=== PATIENT | female | born 1975 | race Caucasian/White ===

== ENCOUNTER 2018-12-24 13:06 | Emergency (ER) | payer OTHER, MEDICAID ==
[~2018-12-24] VITALS: Ht 157.5 cm; Wt 120.0 kg
[~2018-12-24 13:06] MED LIST: ALPR-624 PO; HYDR-4383 PO; METH4TAB PO; VIT D
[2018-12-24 13:39] VITALS: BP 108/70
== END 2018-12-24 15:24 | disposition home or self-care (01) ==
LOC: ER 13:06
DX: M25.562 Pain in left knee (principal); Z88.0 Allergy status to penicillin; Z88.2 Allergy status to sulfonamides; Z88.6 Allergy status to analgesic agent; Z79.899 Other long term (current) drug therapy; X50.1XXA Overexertion from prolonged static or awkward postures, initial encounter; Y93.89 Activity, other specified; Y92.89 Other specified places as the place of occurrence of the external cause; Y99.8 Other external cause status
CPT/HCPCS: 29505; 99283

== ENCOUNTER 2019-01-02 09:28 | Outpatient (CLI) | payer OTHER, MEDICAID ==
[2019-01-02 09:24] VITALS: BP 105/86
== END 2019-01-02 10:25 | disposition home or self-care (01) ==
LOC: ORTHO 09:28
PROVIDERS: ATTEND Orthopaedic Surgery
DX: M25.562 Pain in left knee (principal); N20.0 Calculus of kidney
CPT/HCPCS: G0463

== ENCOUNTER → 2019-01-31 | Outpatient (CLI) | payer OTHER, MEDICAID | END | disposition home or self-care (01) | LOC: ORTHO 11:38 | PROVIDERS: ATTEND Orthopaedic Surgery | DX: S86.912A Strain of unspecified muscle(s) and tendon(s) at lower leg level, left leg, initial encounter (principal); X58.XXXA Exposure to other specified factors, initial encounter; Y93.89 Activity, other specified; Y92.89 Other specified places as the place of occurrence of the external cause; Y99.8 Other external cause status | CPT/HCPCS: G0463 ==

== ENCOUNTER → 2019-03-14 | Outpatient (CLI) | payer MEDICAID, OTHER ==
[2019-03-14 11:03] VITALS: BP 129/81
== END | disposition home or self-care (01) ==
LOC: ORTHO 11:07
PROVIDERS: ATTEND Orthopaedic Surgery
DX: M25.562 Pain in left knee (principal)
CPT/HCPCS: G0463

== ENCOUNTER 2019-05-19 09:24 | Emergency (ER) | payer MEDICAID, OTHER ==
[~2019-05-19] VITALS: Ht 157.5 cm; Wt 121.7 kg
[2019-05-19 10:07] VITALS: BP 119/78
--- NOTE | 2019-05-19 10:58 | NUR ---
BELIA Osman notified that pt has questions upon DC. Will await provider.
== END 2019-05-19 11:50 | disposition home or self-care (01) ==
LOC: ER 09:24
DX: R60.0 Localized edema (principal); M79.605 Pain in left leg; Z88.0 Allergy status to penicillin; Z88.2 Allergy status to sulfonamides; Z88.6 Allergy status to analgesic agent; Z79.899 Other long term (current) drug therapy
CPT/HCPCS: 93971; 99284

== ENCOUNTER 2019-07-04 15:26 | Outpatient (CLI) | payer OTHER, MEDICAID | END 2019-07-04 17:00 | disposition home or self-care (01) | LOC: ORTHO 15:26 | PROVIDERS: ATTEND Orthopaedic Surgery | DX: I10 Essential (primary) hypertension (principal); Z53.21 Procedure and treatment not carried out due to patient leaving prior to being seen by health care provider ==

== ENCOUNTER 2024-10-10 05:47 | Outpatient (CLI) | payer OTHER ==
[2024-10-10] MEDS ORDERED: iohexol 300 MG/1 ML 50ml polymer ONE (06:41)
[2024-10-10] MEDS ORDERED: LIDOcaine 1% 30ml preserv. free vial ONE (06:41)
[2024-10-10] MEDS ORDERED: LIDOcaine 1%/PF 5ML 10 MG/ML VIAL ONE (06:41)
[2024-10-10] MEDS ORDERED: GADOTERATE MEGLUMINE 7.5 MMOL/15 ML VIAL IV ONE (06:41)
--- NOTE | 2024-10-10 09:05 | RADIOLOGY REPORT ---
CLINICAL HISTORY: Right shoulder pain. TECHNIQUE: Multisequence multiplanar MR arthrogram images of the right shoulder were obtained after the uneventful intra-articular administration of dilute gadolinium contrast under fluoroscopic anette nce. For details concerning the contrast injection, refer to the separately dictated same-day convent ional arthrogram report. COMPARISON: None FINDINGS: Acromioclavicular joint: There is mild acromioclavicular hypertrophy and mild edema. There is Type 2 acromion. Moderate fluid in the subacromial / subdeltoid bursa. No contrast in the subacromial / subd eltoid bursa. Rotator cuff tendons: Attenuated distal supraspinatus and infraspinatus tendon fibers due to partial- thickness bursal surface tear involving the supraspinatus tendon likely extending to involve some ant erior fibers of the infraspinatus tendon. Portions of the tear are near full-thickness. Measures up to 1.5 cm in AP dimension and up to 1.2 cm in proximal to distal dimension. No contrast extending int o the subacromial / subdeltoid bursal to suggest a full-thickness component of the tear. Subscapulari s and teres minor tendons are intact. Biceps tendon: No significant tendinosis. No evidence of attrition or tear. Labrum: No labral tear identified. Bones: No fracture or focal marrow contusion. Muscles: Normal muscle bulk. No atrophy. Other: Motion artifact limits evaluation. Adequate distention of the joint with contrast. No synovit is or loose bodies. IMPRESSION: 1. Motion limited study. 2. Partial-thickness bursal surface tear involving the supraspinatus tendon and likely extending to s ome anterior fibers of the infraspinatus tendon. Portions of the tear approach near full-thickness. 3. Moderate subacromial/ subdeltoid bursitis. 4. Mild acromioclavicular hypertrophy. 5. No labral tear identified.
--- NOTE | 2024-10-10 10:59 | RADIOLOGY REPORT ---
C-ARM FLUOROSCOPY: PROCEDURE: Right shoulder FLUOROSCOPY TIME: 0.1 minute DAP: 1 mgy FINDINGS: Spot intraoperative C arm radiographs demonstrating right shoulder injection for MRI arthrogram. IMPRESSION: Please refer to surgical report for detailed findings.
== END 2024-10-10 23:59 | disposition home or self-care (01) ==
LOC: RAD 05:47
PROVIDERS: ATTEND Specialist
DX: M25.511 Pain in right shoulder (principal); M75.51 Bursitis of right shoulder; M75.111 Incomplete rotator cuff tear or rupture of right shoulder, not specified as traumatic; M17.11 Unilateral primary osteoarthritis, right knee; Z88.0 Allergy status to penicillin; Z88.2 Allergy status to sulfonamides; Z98.890 Other specified postprocedural states; Z82.49 Family history of ischemic heart disease and other diseases of the circulatory system
CPT/HCPCS: 23350; 73222; 77002; A9575; J2003; J3490; Q9967